=== PATIENT | female | born 1990 | race Two or more races ===

== ENCOUNTER → 2025-03-18 | Outpatient (CLI) | payer MEDICAID, SELFPAY ==
--- NOTE | 2025-03-18 11:26 | XR_ITS ---
Examination: Abdomen sonogram, complete Date and time of exam: March 18, 2025 1120 hours INDICATIONS: Abdominal pain beginning 2 months ago. Technique: Multiple real-time grayscale transabdominal sonographic images of the abdomen have been obtained. Findings: 5 mm gallbladder polyp Negative for gallstones, normal gallbladder wall. Normal common bile duct 0.4 cm Pancreatic head 2.4 cm Aorta not enlarged. Liver 17 cm fatty infiltration Normal hepatopedal portal venous flow Patent IVC Right kidney 11.1 cm cortex 1.8 cm Left kidney 10.9 cm cortex 1.3 cm No hydronephrosis Spleen 9.9 cm IMPRESSION: 5 mm gallbladder polyp Negative for cholelithiasis, negative for cholecystitis Mild to moderate hepatomegaly
== END | disposition home or self-care (01) ==
PROVIDERS: Referring Provider Internal Medicine Gastroenterology; Visit Provider Internal Medicine Gastroenterology
DX: K82.4 Cholesterolosis of gallbladder (principal); R16.0 Hepatomegaly, not elsewhere classified
CPT/HCPCS: 76700

== ENCOUNTER 2025-03-19 12:10 | Day surgery (SDC) | payer MEDICAID, SELFPAY ==
[2025-03-18 11:39] LABS: HCG Qualitative,Urine Negative
[2025-03-18 14:12] VITALS: BMI 33.4
[2025-03-19] MEDS: RINGERS LACTATED 1000 ML 1,000 ML 20 ML IV (12:24)
[2025-03-19 12:49] VITALS: BP 117/67; PULSE 81; RESP 16; TEMP 36.6; O2SAT 98; BMI 33.8
[2025-03-19 16:39] VITALS: BP 112/69; PULSE 68; RESP 16; TEMP 36.3; O2SAT 99
--- NOTE | 2025-03-19 16:39 | SUR.PHASEII ---
1639 patient arrived to recovery resting comfortably in [facility], on oxygen 2L via nasal cannula, breathing unlabored, vital signs stable, denies pain and nausea, report received from Dr. Lebron and Amalia HAMMOND
[2025-03-19 16:44] VITALS: BP 114/70; PULSE 69; RESP 20; O2SAT 96
[2025-03-19 16:49] VITALS: BP 116/62; PULSE 68; RESP 14; O2SAT 97
[2025-03-19 16:54] VITALS: BP 107/66; PULSE 65; RESP 20; O2SAT 97
[2025-03-19 17:09] VITALS: BP 108/68; PULSE 69; RESP 20; TEMP 36.3; O2SAT 97
--- NOTE | 2025-03-19 17:29 | SUR.PHASEII ---
1729 patient meets discharge criteria from recovery, awake and alert, breathing unlabored, vital signs stable, denies nausea and pain, able to dress herself into her clothing, discharge instructions given to patient and patient father with the assistance of the telephone interpreter deaf, patient father signed discharge instructions. Patient given all her belongings prior to discharge, transported via wheelchair and left in a private vehicle.
== END 2025-03-19 17:29 | disposition home or self-care (01) ==
PROVIDERS: Anesthesiology; Referring Provider Internal Medicine Gastroenterology; Visit Provider Internal Medicine Gastroenterology
PROC: 0DJD8ZZ Inspection of Lower Intestinal Tract, Via Natural or Artificial Opening Endoscopic (ICD-10-PCS; CPT 45378; principal; 2025-03-19 13:45)
PROC: (CPT 43239; 2025-03-19 13:45)
DX: K51.911 Ulcerative colitis, unspecified with rectal bleeding (principal); K52.9 Noninfective gastroenteritis and colitis, unspecified; E66.01 Morbid (severe) obesity due to excess calories; K64.9 Unspecified hemorrhoids; K29.51 Unspecified chronic gastritis with bleeding
CPT/HCPCS: 45380; 81025; A4217; A4649; J7120

== ENCOUNTER 2025-06-12 06:50 | Day surgery (SDC) | payer MEDICAID, SELFPAY ==
[2025-06-11 11:11] VITALS: BMI 34.4
[2025-06-11 11:31] LABS: HCG Qualitative,Urine Negative
[2025-06-12] VITALS (11 sets, daily range): BP systolic 101–125; BP diastolic 62–81; PULSE 75–113; RESP 12–18; TEMP 36.2–36.9; O2SAT 96–100; BMI 33.9
[2025-06-12] MEDS: ONDANSETRON INJ 2 MG/ML INJ 2 ML 4 MG IVP (07:55)
[2025-06-12] MEDS: RINGERS LACTATED 500 ML 500 ML 20 ML IV (07:59)
[2025-06-12] MEDS: fentaNYL CIT INJ 50 mCg/ML AMP 2ML (ASD USE ONLY) IVP (08:08)
[2025-06-12] MEDS: MIDAZOLAM INJ 1 MG/ML VIAL 2 ML (ASD USE ONLY) 2 MG IVP (08:17)
--- NOTE | 2025-06-12 09:17 | SUR.PHASEII ---
0855 PATIENT AMBULATES TO BATHROOM WITH NO DIFFICULTY. 0857 PATIENT DRESSED AND IN WHEELCHAIR. 0900 IN PACU SPEAKING TO PATIENT ABOUT FOLLOW UP APPOINTMENT AND PLAN OF CARE. 0915 D/C INSTRUCTIONS GIVEN TO PATIENT AND PATIENT'S FATHER OSWALD BY TAL HAMMOND/CERTIFIED EVENTS MANAGER. 0917 PATIENT DISCHARGED HOME.
== END 2025-06-12 09:17 | disposition home or self-care (01) ==
PROVIDERS: PCP Family Medicine; Referring Provider Internal Medicine Gastroenterology; Visit Provider Internal Medicine Gastroenterology
PROC: 0DBE8ZX Excision of Large Intestine, Via Natural or Artificial Opening Endoscopic, Diagnostic (ICD-10-PCS; CPT 45380; principal; 2025-06-12 12:45)
DX: K52.9 Noninfective gastroenteritis and colitis, unspecified (principal); E66.9 Obesity, unspecified; K64.9 Unspecified hemorrhoids; E88.810 Metabolic syndrome; Z68.33 Body mass index [BMI] 33.0-33.9, adult; K51.511 Left sided colitis with rectal bleeding
CPT/HCPCS: 45380; 81025; A4649; J1200; J2250; J2405; J3010; J7120